=== PATIENT | female | born 1970 | race Caucasian/White ===

== ENCOUNTER 2020-09-30 16:40 | Emergency (ER) | payer SELFPAY ==
[~2020-09-30] VITALS: Ht 154.9 cm; Wt 64.4 kg
[~2020-09-30 16:40] MED LIST: PREN-385 PO
[2020-09-30 16:47] VITALS: BP 144/99
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
[2020-09-30] MEDS ORDERED: PRED20TA5 PO (17:33)
[2020-09-30 17:44] VITALS: BP 144/99
== END 2020-09-30 17:45 | disposition home or self-care (01) ==
LOC: MED 16:40
DX: T59.811A Toxic effect of smoke, accidental (unintentional), initial encounter (principal); R07.89 Other chest pain; R05 Cough; Z79.899 Other long term (current) drug therapy; Y92.89 Other specified places as the place of occurrence of the external cause
CPT/HCPCS: 71045; 99283